=== PATIENT | female | born 1995 | race Caucasian/White ===

== ENCOUNTER 2016-08-01 17:53 | Emergency (ER) | payer MEDICAID, OTHER ==
[~2016-08-01] VITALS: Ht 160 cm; Wt 95.5 kg
[~2016-08-01 17:53] MED LIST: PREN-39 PO
[2016-08-01 17:56] VITALS: Ht 160 cm; Wt 95.5 kg
[2016-08-01] MEDS ORDERED: ACETAMINOPHEN 325 MG TAB PO STA (20:11)
[2016-08-01 20:41] LABS: ADD SCAN DIFF NO
[2016-08-01 20:45] LABS: BASOPHILS % 0.3 % (0.0-2.0); EOSINOPHILS # 0.5 10^3/ul (0.0-0.5); EOSINOPHILS % 5.5 % (0.0-7.0); HEMATOCRIT 38.9 % (37.0-47.0); HEMOGLOBIN 13.3 g/dl (12.0-16.0); LYMPHOCYTES # 2.9 10^3/ul (0.8-2.9); LYMPHOCYTES % 30.7 % (15.0-51.0); MEAN CORPUSCULAR HGB CONC 34.2 g/dl (32.0-37.0); MEAN CORPUSCULAR VOLUME 87.6 fl (82.0-101.0); MEAN PLATELET VOLUME 9.8 fl (7.4-10.4); MONOCYTE # 0.8 10^3/ul (0.3-0.9); MONOCYTES % 8.4 % (0.0-11.0); NEUTROPHIL # 5.2 10^3/ul (1.6-7.5); NEUTROPHILS % 54.6 % (39.0-77.0); PLATELET COUNT 247 10^3/UL (140-415); RED BLOOD COUNT 4.44 10^6/ul (4.20-5.40); RED CELL DISTRIBUTION WIDTH 12.2 % (11.5-14.5); WHITE BLOOD COUNT 9.6 10^3/ul (4.8-10.8)
[2016-08-01 20:48] LABS: ADD UMIC YES; URINE BILIRUBIN (Dip) NEGATIVE (NEGATIVE); URINE BLOOD (Dip) 2+ (NEGATIVE); URINE COLOR LT. YELLOW (YELLOW); URINE GLUCOSE (Dip) NEGATIVE (NEGATIVE); URINE KETONES (Dip) TRACE (NEGATIVE); URINE LEUKOCYTE ESTERASE (Dip) TRACE (NEGATIVE); URINE NITRITE (Dip) NEGATIVE (NEGATIVE); URINE UROBILINOGEN (Dip) 1.0 E.U./dL (0.1-1.0)
[2016-08-01 20:56] LABS: INR 0.95; PROTIME 12.7 Sec (12.2-14.2)
[2016-08-01 20:57] LABS: PARTIAL THROMBOPLASTIN TIME 29.3 Sec (25.0-35.0)
[2016-08-01 20:58] LABS: ALBUMIN 4.2 g/dl (3.3-4.9); POTASSIUM 3.8 mmol/L (3.5-5.1)
[2016-08-01 21:00] LABS: BILIRUBIN,INDIRECT 0.6 mg/dl (0-1.1); BILIRUBIN,TOTAL 0.6 mg/dl (0.2-1.3); CREATININE 0.6 mg/dl (0.44-1.00)
[2016-08-01 21:01] LABS: ALBUMIN/GLOBULIN RATIO 1.2; CALCIUM 9.2 mg/dl (8.4-10.2); TOTAL PROTEIN 7.7 g/dl (6.1-8.1)
[2016-08-01 21:07] LABS: BACTERIA,URINE MANY; SQUAMOUS EPITHELIAL CELL,UR MANY
[2016-08-01 21:11] LABS: URINE TOTAL PROTEIN (Dip) TRACE (NEGATIVE)
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
[2016-08-01] MEDS ORDERED: NITR-58 PO (21:44)
[2016-08-01 22:10] VITALS: BP 128/88; PULSE 85; RESP 20; TEMP 97.8
== END 2016-08-01 22:11 | disposition home or self-care (01) ==
LOC: FTE 17:53
DX: O23.41 Unspecified infection of urinary tract in pregnancy, first trimester (principal); R10.32 Left lower quadrant pain; Z3A.12 12 weeks gestation of pregnancy
CPT/HCPCS: 36415; 76801; 80053; 81001; 84702; 85025; 85610; 85730; 86900; 86901; Z7502; Z7610; 81003

== ENCOUNTER 2016-09-04 09:10 | Emergency (ER) | payer OTHER ==
[~2016-09-04] VITALS: Ht 167.6 cm; Wt 94.0 kg
[~2016-09-04 09:10] MED LIST changes: +NITR-58 PO
[2016-09-04 09:12] VITALS: Ht 167.6 cm; Wt 94.0 kg
[2016-09-04] MEDS ORDERED: CEPH500C PO (09:25)
--- NOTE | 2016-09-04 09:32 | ERD ---
ER Documentation Chief Complaint Date/Time DATE: 09/04/16 TIME: 09:30 Chief Complaint Complains of painful urination since this am HPI 21-year-old previously healthy female 4 months presenting with dysuria that started around 5 AM. She has associated mild suprapubic aching, but denies any flank pain, fever, chills, nausea, or vomiting. She has no vaginal bleeding or pelvic cramping. She did notice some blood in her urine when she wiped today. ROS All systems reviewed and are negative except as per history of present illness. Medications Home Meds Active Scripts Cephalexin* (Cephalexin*) 500 Mg Capsule, 500 MG PO BID, #14 CAP Prov:JEREMIAS CARPENTER MD 09/04/16 Nitrofurantoin Monohyd Macrocr* (Macrobid*) 100 Mg Capsr, 100 MG PO BID for 7 Days, #14 CAP Prov:FAUSTINA ULRICH PA-C 08/01/16 Reported Medications Vits W-Ca,Fe,Fa(<1MG) ( Vitamins) 1 Tab Tablet, 1 TAB PO DAILY 12/09/13 Allergies Allergies: Coded Allergies: No Known Allergies (Verified Allergy, Unknown, 08/27/13) PMhx/Soc Medical and Surgical Hx: pt denies Medical Hx, pt denies Surgical Hx History of Surgery: No (DENIES MEDICAL AND SURGICAL HX) Anesthesia Reaction: No Hx Neurological Disorder: No Hx Respiratory Disorders: No Hx Cardiac Disorders: No Hx Psychiatric Problems: No Hx Miscellaneous Medical Probl: No Hx Alcohol Use: No Hx Substance Use: No Hx Tobacco Use: No Smoking Status: Never smoker FmHx Family History: No diabetes Physical Exam Vitals Vital Signs Date Time Temp Pulse Resp B/P Pulse Ox O2 Delivery O2 Flow Rate FiO2 09/04/16 09:12 98.9 93 20 151/66 97 Physical Exam Const: Well-appearing, no apparent distress Head: Atraumatic Eyes: Normal Conjunctiva ENT: Normal External Ears, Nose and Mouth. Neck: Full range of motion..~ No meningismus. Resp: Clear to auscultation bilaterally Cardio: Regular rate and rhythm, no murmurs Abd: Soft, gravid abdomen, minimal suprapubic tenderness without rebound or guarding. Normal bowel sounds Skin: No petechiae or rashes Back: No midline or flank tenderness Ext: No cyanosis, or edema Neur: Awake and alert Psych: Normal Mood and Affect Procedures/MDM Patient is presenting with symptoms consistent with UTI. Urinalysis and culture were sent. Her vitals are stable and she is afebrile. There is no evidence of acute surgical abdomen or pyelonephritis. She will be discharged with Keflex for 7 days. Return precautions were discussed. She was advised to follow-up with her PCP or OB after finishing her antibiotics for repeat urinalysis. Departure Diagnosis: Primary Impression: Urinary tract infection Urinary tract infection type: acute cystitis Hematuria presence: with hematuria Qualified Code: N30.01 - Acute cystitis with hematuria Condition: Stable Patient Instructions: Understanding Urinary Tract Infections (UTIs) Referrals: KAILEY GUTIERREZ MD (PCP) Additional Instructions: Return to the ER for any worsening symptoms. Follow-up with your OB or your primary care doctor to recheck your urine after you are done with the antibiotics. JEREMIAS CARPENTER MD Sep 04, 2016 09:32
[2016-09-04 09:40] LABS: ADD UMIC YES; UR BILIRUBIN (Dip) NEGATIVE (NEGATIVE); UR BLOOD (Dip) 3+ (NEGATIVE); UR CLARITY SLIGHTLY CLOUDY (CLEAR); UR COLOR YELLOW (YELLOW); UR GLUCOSE (Dip) NEGATIVE (NEGATIVE); UR KETONES (Dip) NEGATIVE (NEGATIVE); UR LEUKOCYTE ESTERASE (Dip) 1+ (NEGATIVE); UR NITRITE (Dip) POSITIVE (NEGATIVE); UR TOTAL PROTEIN (Dip) 2+ (NEGATIVE); UR UROBILINOGEN (Dip) 1.0 E.U./dL (0.1-1.0)
[2016-09-04 09:54] LABS: UR BACTERIA MANY; UR SQUAMOUS EPITHELIAL CELL MODERATE; URINE RBCS >50 /HPF (0)
== END 2016-09-04 09:40 | disposition home or self-care (01) ==
LOC: FTE 09:10
DX: N30.01 Acute cystitis with hematuria (principal)
CPT/HCPCS: 81001; 87086; Z7502; 99283

== ENCOUNTER 2017-02-05 14:04 | Inpatient (IN) | payer OTHER ==
[~2017-02-05] VITALS: Ht 160 cm; Wt 100.0 kg
[~2017-02-05 14:04] MED LIST changes: +CEPH500C PO
--- NOTE | 2017-02-05 14:21 | TRIAGE ---
OB Triage Datetime Report Generated by CPN: 02/05/2017 14:21 Datetime: 02/05/2017 14:18 Time of Arrival: 02/05/2017 14:00 Arrived By: Ambulatory Arrived From: Home Chief Complaint: UCS SINCE 1000 Movement: Present Contractions: Regular Time Contractions Began: 02/05/2017 10:00 Contractions: 5 Vaginal Bleeding: None Patient Complaints: Contractions Time Provider Notified: 02/05/2017 14:19 Provider Notified: AMOL Initial Plan: SHRADDHA BELL,CALL LABORIST
[2017-02-05] MEDS ORDERED: LACTATED RINGER'S 1,000 ML IV SCH (14:25)
[2017-02-05] MEDS ORDERED: OXYTOCIN 30 UNITS/LR 500 ML IV SCH (14:30)
[2017-02-05] MEDS ORDERED: MISOPROSTOL 200 MCG TAB PR PRN ×2 (14:30→21:00)
[2017-02-05] MEDS ORDERED: OXYTOCIN 30 UNITS/LR 500 ML IV PRN ×2 (14:30→21:00)
[2017-02-05] MEDS ORDERED: METHYLERGONOVINE 0.2 MG INJ IM PRN ×2 (14:30→21:00)
[2017-02-05] MEDS ORDERED: AMPICILLIN 2 GM/NS (PMX) 100 ML IV ONE (14:30)
[2017-02-05] MEDS ORDERED: IBUPROFEN 600 MG TAB PO PRN (14:30)
[2017-02-05] MEDS ORDERED: BUTORPHANOL 2 MG INJ IV PRN (14:30)
[2017-02-05] MEDS ORDERED: LIDOCAINE 1% (MPF) 30 ML INJ INJ PRN (14:30)
[2017-02-05] MEDS ORDERED: CARBOPROST 250 MCG INJ IM PRN ×2 (14:30→21:00)
[2017-02-05 14:31] VITALS: BP 129/66; PULSE 108; RESP 18; Ht 160 cm; Wt 100.0 kg
[2017-02-05] MEDS ORDERED: LACTATED RINGER'S 1,000 ML IV PRN (15:00)
[2017-02-05 15:04] LABS: BASOPHILS % 0.1 % (0.0-2.0); EOSINOPHILS # 0.4 10^3/ul (0.0-0.5); EOSINOPHILS % 4.2 % (0.0-7.0); HEMATOCRIT 35.5 % (37.0-47.0); HEMOGLOBIN 12.2 g/dl (12.0-16.0); LYMPHOCYTES # 1.7 10^3/ul (0.8-2.9); MEAN CORPUSCULAR HEMOGLOBIN 29.8 pg (29.0-33.0); MEAN CORPUSCULAR HGB CONC 34.4 g/dl (32.0-37.0); MEAN CORPUSCULAR VOLUME 86.8 fl (82.0-101.0); MEAN PLATELET VOLUME 10.4 fl (7.4-10.4); MONOCYTE # 0.5 10^3/ul (0.3-0.9); MONOCYTES % 5.6 % (0.0-11.0); NEUTROPHIL # 5.8 10^3/ul (1.6-7.5); NEUTROPHILS % 69.3 % (39.0-77.0); PLATELET COUNT 206 10^3/UL (140-415); RED BLOOD COUNT 4.09 10^6/ul (4.20-5.40); RED CELL DISTRIBUTION WIDTH 13.8 % (11.5-14.5); WHITE BLOOD COUNT 8.4 10^3/ul (4.8-10.8)
[2017-02-05 15:23] LABS: INR 0.92; PROTIME 12.4 Sec (12.2-14.2)
[2017-02-05 15:24] LABS: PARTIAL THROMBOPLASTIN TIME 28.2 Sec (25.0-35.0)
[2017-02-05] MEDS ORDERED: FENTAnyl 2MCG/ML-ROPIV 0.2% 100 ML ONE (16:34)
--- NOTE | 2017-02-05 17:57 | HP ---
Date/Time of Note Date/Time of Note DATE: 02/05/17 TIME: 17:54 OB - History Hx of Present Free Text/Dictation 21-year-old female 2 para 1 at 39 weeks and 2 days complaining of onset of uterine contractions started at 10:30 AM on February 05, 2017 Estimated Due Date: Feb 10, 2017 : 2 Para: 1 Care: Good Care Ultrasounds: Normal mid trimester US Obstetrical Complications: None Medical Complications: None Past Family/Social History * Past Medical, Surgical, Family and Obstetric Histories reviewed from chart. Blood Type: O+ Rubella: immune RPR/VDRL: Negative GBS Status: Positive HBsAG: Negative OB Admission Exam Vital Signs Vital Signs Vital Signs Date Time Temp Pulse Resp B/P Pulse Ox O2 Delivery O2 Flow Rate FiO2 02/05/17 14:31 98.0 108 18 129/66 Room Air Physical Exam HEENT: WNL Heart: Rhythm Normal Lungs: Clear, Equal Abdomen: WNL Extremities: Normal Reflexes: Normal Cervical Dilatation: 6cm Effacement: 100% Station: -2 Membranes: Intact Heart Rate: 140's Accelerations: Accelerations Present Decelerations: No Decelerations Varibility: Moderate Contractions on Admission: < 5 Minutes Apart Date/Time Contractions Began: February 05, 2017 at 10:30 AM Frequency of Contractions: Every 3-4 minutes Duration: Over 60 seconds Intensity: Firm Last 72 hours Lab Results CBC & BMP 02/05/17 14:35 OB Assessment/Plan Reason for admission: active labor Other Assessment: Term gestation Other plan: Proceed with labor Vaginal delivery anticipated HUBERT FAY MD Feb 05, 2017 17:57
--- NOTE | 2017-02-05 17:59 | LDN ---
Date/Time of Note Date/Time of Note DATE: 02/05/17 TIME: 17:58 Delivery Summary Normal spontaneous vaginal delivery of a viable over intact perineum Weeks of Gestation 39 weeks and 2 days Placenta Delivered: Spontaneously, Intact & Complete Meconium: none Episiotomy: No Perineal laceration: 0 Laceration repair: 2 small hymenal lacerations were closed with single stitches of 2-0 chromic Anesthesia type: Epidural Estimated blood loss: 300 Sponge & Needle done & correct: Yes All needle counts correct: Yes Any foreign bodies felt in the: No Problems: Delivery Information Sex Infant Sex: female Apgars 1 Minute: 9 5 Minute: 9 Suctioning Nose & mouth suctioned at carlos: Yes Delee suction performed: No Umbilical Cord Umbilical cord with: 3 Vessels Cord presentations: no nuchal cord Cord Blood was obtained: Yes Mother & Baby Disposition Disposition Mom & Baby to Maternity; Good: Yes (Mother and baby were recovering in good condition) Mom transferred to: Other (Maternity) Baby to NICU: No HUBERT FAY MD Feb 05, 2017 17:59
[2017-02-05] MEDS: OXYTOCIN 30 UNITS/LR 500 ML IV SCH ×2 (18:02→18:03)
[2017-02-05] MEDS ORDERED: AMPICILLIN 1 GM/NS (PMX) 50 ML IV SCH (18:30)
[2017-02-05 20:30] VITALS: BP 118/59; PULSE 84; RESP 18
[2017-02-05] MEDS ORDERED: NALOXONE (0.4 MG/ML) INJ IV PRN (20:30)
[2017-02-05] MEDS ORDERED: FENTAnyl 2MCG/ML-ROPIV 0.2% 100 ML BAG EPI SCH (20:30)
[2017-02-05] MEDS ORDERED: HYDROCODONE/APAP (5/325) TAB PO PRN ×2 (21:00)
[2017-02-05] MEDS ORDERED: BENZOCAINE 20% 56 ML SPRAY TOP PRN (21:00)
[2017-02-05] MEDS ORDERED: WITCH HAZEL/GLYCERIN PAD PR PRN (21:00)
[2017-02-05] MEDS ORDERED: DIBUCAINE 1% 30 GM OINT PR PRN (21:00)
[2017-02-05] MEDS ORDERED: LANOLIN 7 GM TUBE TOP PRN (21:00)
[2017-02-05] MEDS ORDERED: ZOLPIDEM 5 MG TAB PO PRN (21:00)
[2017-02-05 21:05] VITALS: BP 120/57; PULSE 88; RESP 18
[2017-02-05] MEDS: MAGNESIUM HYDROXIDE 30ML CUP PO SCH (21:30)
[2017-02-05] MEDS: SENNA/DOCUSATE NA (8.6MG/50MG) TAB PO SCH (21:30)
[2017-02-05] MEDS: LACTATED RINGER'S 1,000 ML IV* SCH (22:54)
[2017-02-05] MEDS: IBUPROFEN 600 MG TAB PO SCH (23:53)
[2017-02-05] MEDS: CEPHALEXIN 500 MG CAP PO SCH (23:53)
[2017-02-06] VITALS (7 sets, daily range): BP systolic 109–130; BP diastolic 56–74; PULSE 73–87; RESP 16–18
[2017-02-06] MEDS: LACTATED RINGER'S 1,000 ML IV* SCH ×3 (04:45→20:45)
[2017-02-06] MEDS: CEPHALEXIN 500 MG CAP PO SCH ×4 (05:42→23:47)
[2017-02-06] MEDS: IBUPROFEN 600 MG TAB PO SCH ×4 (05:42→23:48)
[2017-02-06 08:31] LABS: BASOPHILS % 0.4 % (0.0-2.0); EOSINOPHILS # 0.3 10^3/ul (0.0-0.5); EOSINOPHILS % 2.6 % (0.0-7.0); HEMATOCRIT 31.3 % (37.0-47.0); HEMOGLOBIN 10.7 g/dl (12.0-16.0); LYMPHOCYTES # 2.6 10^3/ul (0.8-2.9); LYMPHOCYTES % 24.8 % (15.0-51.0); MEAN CORPUSCULAR HEMOGLOBIN 29.9 pg (29.0-33.0); MEAN CORPUSCULAR HGB CONC 34.2 g/dl (32.0-37.0); MEAN CORPUSCULAR VOLUME 87.4 fl (82.0-101.0); MEAN PLATELET VOLUME 10.6 fl (7.4-10.4); MONOCYTE # 0.6 10^3/ul (0.3-0.9); NEUTROPHIL # 6.7 10^3/ul (1.6-7.5); NEUTROPHILS % 65.3 % (39.0-77.0); PLATELET COUNT 183 10^3/UL (140-415); RED BLOOD COUNT 3.58 10^6/ul (4.20-5.40); RED CELL DISTRIBUTION WIDTH 13.6 % (11.5-14.5); WHITE BLOOD COUNT 10.3 10^3/ul (4.8-10.8)
[2017-02-06] MEDS: SENNA/DOCUSATE NA (8.6MG/50MG) TAB PO SCH ×2 (08:58→21:34)
[2017-02-06] MEDS: MAGNESIUM HYDROXIDE 30ML CUP PO SCH ×2 (08:58→21:34)
[2017-02-07 03:45] VITALS: BP 119/63; PULSE 80; RESP 18
[2017-02-07] MEDS: LACTATED RINGER'S 1,000 ML IV* SCH ×2 (04:45→12:45)
[2017-02-07] MEDS: CEPHALEXIN 500 MG CAP PO SCH ×3 (05:45→18:10)
[2017-02-07] MEDS: IBUPROFEN 600 MG TAB PO SCH ×3 (05:45→18:10)
[2017-02-07 08:20] VITALS: BP 113/57; PULSE 78; RESP 18
--- NOTE | 2017-02-07 08:39 | QN ---
Documentation Comment PPD#2 is stable ,afebrile tolerates diet No Vb +BM+Voids VS stable Gen NAD Abd soft NT ND Geenitalia No blood at perinium --->discharge plan LENO GONZALES M.D. Feb 07, 2017 08:39
--- NOTE | 2017-02-07 08:40 | DS ---
Date/Time of Note Date/Time of Note DATE: 02/07/17 TIME: 08:39 Discharge Summary Admission/Discharge Info Admit Date/Time Feb 05, 2017 at 14:20 Discharge Date/Time Discharge Diagnosis Patient Condition: Good Hospital Course uneventful Home Meds Active Scripts Cephalexin* (Cephalexin*) 500 Mg Capsule, 500 MG PO BID, #14 CAP Prov:JEREMIAS CARPENTER MD 09/04/16 Nitrofurantoin Monohyd Macrocr* (Macrobid*) 100 Mg Capsr, 100 MG PO BID for 7 Days, #14 CAP Prov:FAUSTINA ULRICH PA-C 08/01/16 Reported Medications Vits W-Ca,Fe,Fa(<1MG) ( Vitamins) 1 Tab Tablet, 1 TAB PO DAILY 12/09/13 Primary Care Provider Not On Staff Doctor LENO GONZALES M.D. Feb 07, 2017 08:40
[2017-02-07] MEDS ORDERED: DIPHTH/TET/ACEL PERTUSS (ADULT) 0.5 ML VIAL IM* ONE (09:00)
[2017-02-07] MEDS ORDERED: VARICELLA VACCINE LIVE/PF 1,350 UNIT/0.5 ML ML SC* ONE (09:00)
[2017-02-07] MEDS: MAGNESIUM HYDROXIDE 30ML CUP PO SCH (09:00)
[2017-02-07] MEDS ORDERED: MEASLES,MUMPS,RUBELLA VACCINE INJ SC* ONE (09:00)
[2017-02-07] MEDS: SENNA/DOCUSATE NA (8.6MG/50MG) TAB PO SCH (09:02)
[2017-02-07 12:31] LABS: RUBELLA ANTIBODY - IGG 2.29 index
--- NOTE | 2017-02-07 13:31 | PD.PPDC ---
[employer]EF[employer] INTERVIEWER Discharge Instruction Provider Information Physician Information 21 y/o female had vaginal delivery Diagnosis Final Diagnosis: S/P vaginal delivery Condition Patient Condition: Good Diet Diet: Resume Regular Diet Activity/Restrictions Activity: Normal Activity May Shower Restrictions: Nothing in the Vagina Return to Work or School: Mar 27, 2017 Follow-up Follow-up with Physician: 4, Week/Weeks (in clinic) Return to clinic for OB Instructions: Breast Tenderness Depression Comment: pelvic rest X 6 weeks HUBERT FAY MD Feb 07, 2017 13:31
== END 2017-02-07 18:58 | disposition home or self-care (01) | DRG 775 ==
LOC: OBT 14:04 → L-D 14:06 → OBT 14:20 → L-D 14:20 → PP1 20:29
PROVIDERS: ADMIT Obstetrics & Gynecology; ATTEND Obstetrics & Gynecology
PROC: 10E0XZZ Delivery of Products of Conception, External Approach (ICD-10-PCS; principal; 2017-02-05)
PROC: 0UQKXZZ Repair Hymen, External Approach (ICD-10-PCS; 2017-02-05)
DX: O99.824 Streptococcus B carrier state complicating childbirth (principal); Z37.0 Single live birth; O70.0 First degree perineal laceration during delivery; Z3A.39 39 weeks gestation of pregnancy
CPT/HCPCS: 62319; 85025; 85610; 85730; 86592; 86762; 86900; 86901; 87340; 90715; 90716; G0463; J0290; J2590; J3010; J7120